=== PATIENT | male | born 1955 | race Caucasian/White ===

== ENCOUNTER → 2018-05-15 | Outpatient (CLI) | payer BC ==
--- NOTE | 2018-05-15 11:17 | XR ---
EXAMINATION TYPE: XR chest 2V DATE OF EXAM: 05/15/2018 COMPARISON: Prior chest x-ray 11/18/2009 HISTORY: Cough and congestion TECHNIQUE: Frontal and lateral views of the chest are obtained. FINDINGS: There is no focal air space opacity, pleural effusion, or pneumothorax seen. The cardiac silhouette size is within normal limits. The osseous structures are intact. There is eventration of the right hemidiaphragm. Arthropathy noted in the acromioclavicular joints. There is bronchial wall thickening. IMPRESSION: Correlate for bronchitis, reactive airways disease, follow-up as indicated.
== END | disposition home or self-care (01) ==
LOC: RADXRMAIN 10:07
PROVIDERS: ATTEND Internal Medicine
DX: R05 Cough (principal)
CPT/HCPCS: 71046

== ENCOUNTER 2018-08-20 11:14 | Emergency (ER) | payer BC ==
--- NOTE | 2018-08-20 12:07 | ED ---
General Adult HPI - General Chief complaint: Extremity Injury, Lower Stated complaint: Foot injury Time Seen by Provider: 08/20/18 11:48 Source: patient Mode of arrival: wheelchair Limitations: no limitations - History of Present Illness Initial comments: Dictation was produced using [employer] dictation software. please excuse any grammatical, word or spelling errors. Chief Complaint: 63-year-old male with past medical history of arthroscopic knee surgery presents with right knee pain and right ankle pain. History of Present Illness: A 63-year-old male. He states he was walking when he stepped over a uneven concrete surface. He states he inverted his right ankle. He fell to the ground catching himself. States this occurred last night. Patient reports immediate pain to his ankle and right knee. The ROS documented in this emergency department record has been reviewed and confirmed by me. Those systems with pertinent positive or negative responses have been documented in the HPI. All other systems are other negative and/or noncontributory. PHYSICAL EXAM: General Impression: Alert and oriented x3, not in acute distress HEENT: Normocephalic atraumatic, extra-ocular movements intact, pupils equal and reactive to light bilaterally, mucous membranes moist. Cardiovascular: Heart regular rate and rhythm, S1&S2 audible, no murmurs, rubs or gallops Chest: Lungs clear to auscultation bilaterally, no rhonchi, no wheeze, no rales Abdomen: Bowel sounds present, abdomen soft, non-tender, non-distended, no or ganomegaly Musculoskeletal: Pulses present and equal in all extremities, no peripheral edema. Mild tenderness to the tenderness to palpation of the right proximal fibula, tenderness to the right fifth metatarsal Motor: no focal deficits noted Neurological: CN II-XII grossly intact, no focal motor or sensory deficits noted Skin: Intact with no visualized rashes Psych: Normal affect and mood ED course: 63-year-old male presents with right ankle and right knee pain. Vital signs upon arrival are within acceptable limits.Knee x-ray ankle x-ray and foot x-ray was obtained. There is findings suspicious for Garcia fracture. There is also possible metatarsal fractures of the other digits of the right foot. Patient placed in a posterior ankle splint. Patient has crutches at home he is told to be nonweightbearing. Patient also to rest ice compress and elevate the right lower extremity. Patient has an established orthopedic surgeon Dr. Hoyos who he can schedule an appointment with. Patient given prescription for by mouth analgesics. Patient understandable agreeable to plan. - Related Data Home Medications Medication Instructions Recorded Confirmed Albuterol Sulfate [Proventil Hfa] 1 - 2 puff INHALATION Q6H PRN 10/04/13 11/24/13 Aspirin 81 mg PO DAILY 10/04/13 11/24/13 EPINEPHrine (Auto Inject) [Epipen] 0.3 mg IM ONCE PRN 10/04/13 11/24/13 Fexofenadine HCl [Priscilla Allergy] 180 mg PO HS 10/04/13 11/24/13 Fluticasone Propionate [Flonase] 1 spray EA NOSTRIL BID PRN 10/04/13 11/24/13 Lansoprazole [Prevacid] 30 mg PO DAILY 10/04/13 11/24/13 Levothyroxine Sodium [Synthroid] 50 mcg PO DAILY 10/04/13 11/24/13 Metoprolol Succinate [Toprol XL] 50 mg PO DAILY 10/04/13 11/24/13 Montelukast [Singulair] 10 mg PO HS 10/04/13 11/24/13 Ramipril [Altace] 10 mg PO DAILY 10/04/13 11/24/13 Previous Rx's Medication Instructions Recorded Ibuprofen [Motrin] 600 mg PO Q6HR PRN #20 tab 11/24/13 HYDROcodone/APAP 5-325MG [Dawson 1 tab PO Q6HR PRN 3 Days #12 tab 08/20/18 5-325] Allergies Allergy/AdvReac Type Severity Reaction Status Date / Time NUTS Allergy Severe THROAT Uncoded 08/20/18 11:41 SWELLING AND SOB DAIRY PRODUCTS Allergy Intermediate Rash/Hives Uncoded 08/20/18 11:41 ENVIRONMENTAL Allergy Intermediate COUGH & Uncoded 08/20/18 11:41 NASAL CONGESTION-WATERY ITCHY EYES Review of Systems ROS Statement: Those systems with pertinent positive or pertinent negative responses have been documented in the HPI. ROS Other: All systems not noted in ROS Statement are negative. Past Medical History Past Medical History: Hypertension, Thyroid Disorder Additional Past Medical History / Comment(s): HX GOUT. HX DIVERTICULOSIS History of Any Multi-Drug Resistant Organisms: None Reported Past Surgical History: Adenoidectomy, Orthopedic Surgery, Tonsillectomy Additional Past Surgical History / Comment(s): [facility]. RT KNEE SURGERY X 2. SINUS SURGERY-UVULA REMOVED Past Anesthesia/Blood Transfusion Reactions: No Reported Reaction Past Psychological History: No Psychological Hx Reported Smoking Status: Former smoker Past Alcohol Use History: None Reported Past Drug Use History: None Reported General Exam Limitations: no limitations Course Vital Signs 08/20/18 11:42 Temperature 97.7 F Pulse Rate 72 Respiratory 20 Rate Blood Pressure 123/77 O2 Sat by Pulse 97 Oximetry Procedures - Orthopedic Splinting/Casting Injury #1 Side: right Lower Extremity Injury Location: ankle Lower Extremity Immobilizer: posterior splint Other Orthopedic Equipment: crutches Disposition Clinical Impression: Garcia fracture Disposition: HOME SELF-CARE Condition: Good Instructions (If sedation given, give patient instructions): Foot Fracture in Adults (ED) Prescriptions: HYDROcodone/APAP 5-325MG [Dawson 5-325] 1 tab PO Q6HR PRN 3 Days #12 tab PRN Reason: Severe Pain Is patient prescribed a controlled substance at d/c from ED?: Yes If prescribed controlled substance>3 days was MAPS reviewed?: Prescribed <3 Days Referrals: Carlos Hoyos MD [STAFF PHYSICIAN] - 1-2 days Time of Disposition: 13:11
--- NOTE | 2018-08-20 12:41 | XR ---
EXAMINATION TYPE: XR knee complete RT , 3 VIEWS DATE OF EXAM ORDERED: 08/20/2018 HISTORY: Pain. COMPARISON: None. FINDINGS: There is medial joint space loss. There are mild remodeling changes in the medial compartm ent. No fracture, dislocation or knee joint effusion is seen. IMPRESSION: OSTEOARTHRITIS.
--- NOTE | 2018-08-20 12:43 | XR ---
EXAMINATION TYPE: XR foot complete RT , 3 VIEWS DATE OF EXAM ORDERED: 08/20/2018 HISTORY: Pain. COMPARISON: None. FINDINGS: There is a moderate hallux valgus deformity. There are degenerative changes in the right f irst MTP joint. There is a minimally displaced, intra-articular fracture of the base of the proximal phalanx of the right great toe. There is also fracture of the base of the proximal phalanx of the rig ht fifth digit. There is a fracture of the base of the fifth metatarsal. This is minimally displaced. IMPRESSION: 1. "BARAJAS" FRACTURE OF THE BASE OF THE FIFTH METATARSAL. 2. I CANNOT EXCLUDE FRACTURES OF THE BASE OF THE PROXIMAL PHALANGES OF THE RIGHT GREAT TOE AND FIFTH DIGIT.
--- NOTE | 2018-08-20 12:44 | XR ---
EXAMINATION TYPE: XR ankle complete RT , 3 VIEWS DATE OF EXAM ORDERED: 08/20/2018 HISTORY: Pain. COMPARISON: None. FINDINGS: No fracture, dislocation or ankle joint effusion is seen. IMPRESSION: NO ACUTE OSSEOUS LESION.
[2018-08-20 13:22] VITALS: BP 139/98; PULSE 71; RESP 18; TEMP 97.9
== END 2018-08-20 13:20 | disposition home or self-care (01) ==
LOC: EC 11:14
DX: S92.351A Displaced fracture of fifth metatarsal bone, right foot, initial encounter for closed fracture (principal); I10 Essential (primary) hypertension; E07.9 Disorder of thyroid, unspecified; Z79.82 Long term (current) use of aspirin; Z79.51 Long term (current) use of inhaled steroids; Z79.890 Hormone replacement therapy; Z79.899 Other long term (current) drug therapy; Z91.018 Allergy to other foods; Z91.011 Allergy to milk products; Z91.09 Other allergy status, other than to drugs and biological substances; Z87.891 Personal history of nicotine dependence; W01.0XXA Fall on same level from slipping, tripping and stumbling without subsequent striking against object, initial encounter; Y93.01 Activity, walking, marching and hiking
CPT/HCPCS: 29515; 99283

== ENCOUNTER → 2018-09-15 | Outpatient (CLI) | payer BC ==
--- NOTE | 2018-09-15 14:18 | US ---
EXAMINATION TYPE: US venous doppler duplex LE RT DATE OF EXAM: 09/15/2018 2:10 PM COMPARISON: NONE CLINICAL HISTORY: M79.671 Pain in R foot. Right leg swelling x 1 day SIDE PERFORMED: Right TECHNIQUE: The lower extremity deep venous system is examined utilizing real time linear array sonog dontrell with graded compression, doppler sonography and color-flow sonography. VESSELS IMAGED: External Iliac Vein (EIV) Common Femoral Vein Deep Femoral Vein Greater Saphenous Vein * Femoral Vein Popliteal Vein Small Saphenous Vein * Proximal Calf Veins (* superficial vessels) Right Leg: Appears negative for DVT IMPRESSION: No evidence for DVT at this time.
== END | disposition home or self-care (01) ==
LOC: RADUSWWP 13:43
PROVIDERS: ATTEND Orthopaedic Surgery
DX: M79.671 Pain in right foot (principal)

== ENCOUNTER 2019-01-24 13:20 | Emergency (ER) | payer BC ==
[2019-01-24 13:24] VITALS: BP 157/81; PULSE 60; RESP 18; TEMP 97.9
[2019-01-24] MEDS ORDERED: DIPH,PERTUS(ACELL)TETVAC-LF 0.5 ML VIAL IM ONE (13:55)
[2019-01-24] MEDS ORDERED: AMOXIC-POT CLAV 875MG STARTER 2 EACH TABLET PO STA (13:55)
--- NOTE | 2019-01-24 13:56 | ED ---
General Adult HPI - General Chief complaint: Animal Bite Stated complaint: dog bite rt elbow Time Seen by Provider: 01/24/19 13:43 Source: patient, RN notes reviewed Mode of arrival: ambulatory Limitations: no limitations - History of Present Illness Initial comments: 63-year-old maleWith a past medical history history of hypertension, thyroid disorder presents for dog bites to the right elbow. Patient is unsure if this was a scratch or bite. States he picked his dog up and the dog that was playing with his dog jumped up. This happened last night. Denies any erythema or drainage. States he cleaned the wound out thoroughly. Patient is not up-to-date on tetanus. Denies any pain with bending his right elbow.Patient has no other complaints at this time including shortness of breath, chest pain, abdominal pain, nausea or vomiting, headache, or visual changes. - Related Data Home Medications Medication Instructions Recorded Confirmed Albuterol Sulfate [Proventil Hfa] 1 - 2 puff INHALATION RT-Q6H PRN 10/04/13 01/24/19 Aspirin 81 mg PO DAILY 10/04/13 01/24/19 EPINEPHrine (Auto Inject) [Epipen] 0.3 mg IM ONCE PRN 10/04/13 01/24/19 Fexofenadine HCl [Priscilla Allergy] 180 mg PO DAILY 10/04/13 01/24/19 Lansoprazole [Prevacid] 30 mg PO DAILY 10/04/13 01/24/19 Levothyroxine Sodium [Synthroid] 50 mcg PO DAILY 10/04/13 01/24/19 Metoprolol Succinate [Toprol XL] 50 mg PO DAILY 10/04/13 01/24/19 Montelukast [Singulair] 10 mg PO DAILY 10/04/13 01/24/19 Ramipril [Altace] 10 mg PO DAILY 10/04/13 01/24/19 Previous Rx's Medication Instructions Recorded Amoxicillin/Potassium Clav 1 tab PO Q12HR #20 tab 01/24/19 [Augmentin 875-125 Tablet] Allergies Allergy/AdvReac Type Severity Reaction Status Date / Time NUTS Allergy Severe Anaphylaxis Uncoded 01/24/19 13:52 DAIRY PRODUCTS AdvReac Intermediate Rash/Hives Uncoded 01/24/19 13:52 ENVIRONMENTAL AdvReac Intermediate COUGH & Uncoded 01/24/19 13:52 NASAL CONGESTION-WATERY ITCHY EYES Review of Systems ROS Statement: Those systems with pertinent positive or pertinent negative responses have been documented in the HPI. ROS Other: All systems not noted in ROS Statement are negative. Past Medical History Past Medical History: Hypertension, Thyroid Disorder Additional Past Medical History / Comment(s): HX GOUT. HX DIVERTICULOSIS History of Any Multi-Drug Resistant Organisms: None Reported Past Surgical History: Adenoidectomy, Orthopedic Surgery, Tonsillectomy Additional Past Surgical History / Comment(s): [facility]. RT KNEE SURGERY X 2. SINUS SURGERY-UVULA REMOVED Past Anesthesia/Blood Transfusion Reactions: No Reported Reaction Past Psychological History: No Psychological Hx Reported Smoking Status: Former smoker Past Alcohol Use History: None Reported Past Drug Use History: None Reported General Exam Limitations: no limitations General appearance: alert, in no apparent distress Head exam: Present: atraumatic, normocephalic, normal inspection Eye exam: Present: normal appearance, PERRL, EOMI. Absent: scleral icterus, conjunctival injection, periorbital swelling ENT exam: Present: normal exam, mucous membranes moist Neck exam: Present: normal inspection, full ROM. Absent: tenderness, meningismus, lymphadenopathy Respiratory exam: Present: normal lung sounds bilaterally Cardiovascular Exam: Present: regular rate, normal rhythm, normal heart sounds. Absent: systolic murmur, diastolic murmur, rubs, gallop, clicks Extremities exam: Present: full ROM (Full range of motion of the right elbow including full flexion), normal capillary refill (Capillary refill less than, radial pulse 2+ in the right upper extremity.), other (Patient has a 2 cm linear superficial abrasion noted to the right elbow. No erythema or edema. No drainage. No evidence of infection at this time.) Course Vital Signs 01/24/19 13:22 Temperature 97.9 F Pulse Rate 60 Respiratory 18 Rate Blood Pressure 157/81 O2 Sat by Pulse 98 Oximetry Medical Decision Making - Medical Decision Making 63-year-old male presents to the emergency department for a chief complaint of possible dog bite versus dog scratch. Patient has full range motion of the right elbow where the abrasion is. Neurovascular status intact in the right upper extremity. There is no erythema or edema or drainage from the right elbow. No evidence of infection at this time. Wound was cleaned thoroughly at home. Tetanus was updated. The dog was up-to-date on rabies immunizations. Patient was given Augmentin here in the emergency department and prescription was sent to pharmacy. Patient will follow up with primary care in 1-2 days or return here if he has any worsening symptoms. Disposition Clinical Impression: Dog bite Disposition: HOME SELF-CARE Condition: Good Instructions (If sedation given, give patient instructions): Animal Bite (ED) Additional Instructions: Please take in a bank as directed. Please follow-up with primary care in 1-2 days for a wound recheck. Monitor for signs of infection such as spreading or streaking redness, drainage, fever, or pain with bending the elbow and return immediately to the emergency Department if these occur. Prescriptions: Amoxicillin/Potassium Clav [Augmentin 875-125 Tablet] 1 tab PO Q12HR #20 tab Is patient prescribed a controlled substance at d/c from ED?: No Referrals: Chaya Page MD [Primary Care Provider] - 1-2 days Time of Disposition: 13:55
== END 2019-01-24 14:17 | disposition home or self-care (01) ==
LOC: EC 13:20
DX: S50.311A Abrasion of right elbow, initial encounter (principal); Z23 Encounter for immunization; I10 Essential (primary) hypertension; E07.9 Disorder of thyroid, unspecified; Z79.82 Long term (current) use of aspirin; Z79.890 Hormone replacement therapy; Z79.899 Other long term (current) drug therapy; Z87.891 Personal history of nicotine dependence; Z91.018 Allergy to other foods; Z91.011 Allergy to milk products; Z91.09 Other allergy status, other than to drugs and biological substances; W54.0XXA Bitten by dog, initial encounter
CPT/HCPCS: 90471; 90715; 99283

== ENCOUNTER → 2020-09-01 | Outpatient (CLI) | payer BC ==
--- NOTE | 2020-09-02 06:59 | XR ---
EXAMINATION TYPE: XR chest 2V DATE OF EXAM: 09/01/2020 COMPARISON: 05/15/2018 TECHNIQUE: PA and lateral views submitted. HISTORY: Cough FINDINGS: The lungs are clear and there is no pneumothorax, pleural effusion, or focal pneumonia. Heart size normal. No overt failure. Mildly prominent coarsened central interstitium. IMPRESSION: 1. Correlate for bronchitis or early interstitial pneumonitis..
== END | disposition home or self-care (01) ==
LOC: RADXRMAIN 17:21
PROVIDERS: ATTEND Internal Medicine
DX: R05 Cough (principal)
CPT/HCPCS: 71046

== ENCOUNTER 2023-09-09 14:20 | Emergency (ER) | payer BC, OTHER ==
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
[2023-09-09] MEDS: IBUPROFEN 600 MG TAB PO STA (15:30)
[2023-09-09 16:08] VITALS: BP 125/76; PULSE 67; RESP 18; TEMP 98.2
== END 2023-09-09 15:41 | disposition home or self-care (01) ==
LOC: EC 14:20
DX: S16.1XXA Strain of muscle, fascia and tendon at neck level, initial encounter (principal); F17.200 Nicotine dependence, unspecified, uncomplicated; Z91.018 Allergy to other foods; Z91.048 Other nonmedicinal substance allergy status; V89.2XXA Person injured in unspecified motor-vehicle accident, traffic, initial encounter; Y92.410 Unspecified street and highway as the place of occurrence of the external cause
CPT/HCPCS: 72125; 99284

== ENCOUNTER 2024-09-05 11:35 | Emergency (ER) | payer BC ==
[2024-09-05 11:41] VITALS: TEMP 98.1
--- NOTE | 2024-09-05 11:52 | ED ---
General Adult HPI - General Chief complaint: Neuro Symptoms/Deficit Stated complaint: Dizziness/ Vision Issue Time Seen by Provider: 09/05/24 11:43 Source: patient, family, RN notes reviewed Mode of arrival: wheelchair Limitations: no limitations - History of Present Illness Initial comments: Patient is able 69-year-old male presenting to the emergency department with concern for headache. Onset of symptoms was while looking at the computer screen at work. Symptoms started around a half an hour ago. Discomfort is 5/10. Discomfort is behind her left eye. Patient does have some blurry vision. Patient is able to see otherwise. No photophobia. No vomiting. No weakness. No confusion. No speech problems. No loss of sensation. - Related Data Home Medications Medication Instructions Recorded Confirmed Albuterol Sulfate [Proventil Hfa] 1 - 2 puff INHALATION RT-Q6H PRN 10/04/13 02/16/22 Aspirin 81 mg PO DAILY 10/04/13 02/16/22 EPINEPHrine (Auto Inject) [Epipen] 0.3 mg IM ONCE PRN 10/04/13 02/16/22 Lansoprazole [Prevacid] 30 mg PO DAILY 10/04/13 02/16/22 Levothyroxine Sodium [Synthroid] 50 mcg PO DAILY 10/04/13 02/16/22 Metoprolol Succinate [Toprol XL] 50 mg PO DAILY 10/04/13 02/16/22 Montelukast [Singulair] 10 mg PO DAILY 10/04/13 02/16/22 ramipriL [Altace] 10 mg PO DAILY 10/04/13 02/16/22 amLODIPine [Norvasc] 5 mg PO DAILY 02/15/22 02/16/22 Previous Rx's Medication Instructions Recorded Ibuprofen [Motrin] 600 mg PO Q6HR PRN #20 tab 09/09/23 Allergies Allergy/AdvReac Type Severity Reaction Status Date / Time NUTS Allergy Severe Anaphylaxis Uncoded 09/09/23 14:24 DAIRY PRODUCTS AdvReac Intermediate Rash/Hives Uncoded 09/09/23 14:24 ENVIRONMENTAL AdvReac Intermediate COUGH & Uncoded 09/09/23 14:24 NASAL CONGESTION-WATERY ITCHY EYES Review of Systems ROS Statement: Those systems with pertinent positive or pertinent negative responses have been documented in the HPI. ROS Other: All systems not noted in ROS Statement are negative. Constitutional: Denies: fever Eyes: Denies: eye pain ENT: Denies: ear pain Respiratory: Denies: cough Cardiovascular: Denies: chest pain Endocrine: Denies: fatigue Gastrointestinal: Denies: abdominal pain Musculoskeletal: Denies: back pain Skin: Denies: rash Neurological: Reports: as per HPI, headache. Denies: weakness, confusion Past Medical History Past Medical History: Hypertension, Thyroid Disorder Additional Past Medical History / Comment(s): HX GOUT. HX DIVERTICULOSIS History of Any Multi-Drug Resistant Organisms: None Reported Past Surgical History: Adenoidectomy, Orthopedic Surgery, Tonsillectomy Additional Past Surgical History / Comment(s): [facility] WRI[facility]. RT KNEE SURGERY X 2. SINUS SURGERY-UVULA REMOVED Past Anesthesia/Blood Transfusion Reactions: No Reported Reaction Past Psychological History: No Psychological Hx Reported Smoking Status: Former smoker, Light tobacco smoker Past Alcohol Use History: None Reported Past Drug Use History: None Reported - Past Family History Father Family Medical History: Hypertension Mother Family Medical History: No Reported History General Exam Limitations: no limitations General appearance: alert, in no apparent distress Head exam: Present: other (No tenderness over the temporal artery) Eye exam: Present: normal appearance, PERRL, EOMI Neck exam: Present: normal inspection. Absent: tenderness, meningismus Respiratory exam: Present: normal lung sounds bilaterally Cardiovascular Exam: Present: regular rate, normal rhythm, normal heart sounds GI/Abdominal exam: Present: soft. Absent: tenderness Extremities exam: Present: normal inspection Neurological exam: Present: alert, oriented X3, CN II-XII intact. Absent: motor sensory deficit Expanded Neurological exam: Present: protecting the airway Speech: Present: fluid speech Cranial nerves: EOM's Intact: Normal, Facial Sensation: Normal Sensory exam: Upper Extremity Light Touch: Normal, Lower Extremity Light Touch: Normal Motor strength exam: RUE: 5, LUE: 5, RLE: 5, LLE: 5 Eye Response: (4) open spontaneously Motor Response: (6) obeys commands Verbal Response: (5) oriented Psychiatric exam: Present: normal affect, normal mood Skin exam: Present: normal color Course Vital Signs 09/05/24 11:37 Temperature 98.1 F Pulse Rate 58 L Respiratory 16 Rate Blood Pressure 147/90 O2 Sat by Pulse 99 Oximetry EKG Findings - EKG Results: EKG: interpreted by ERMD (Left axis.), sinus rhythm, normal QRS, normal ST/T EKG shows: bradycardia Medical Decision Making - Medical Decision Making Was pt. sent in by a medical professional or institution ([facility], PERITONEAL DIALYSIS REGISTERED NURSE, urgent care, hospital, or custodial...) When possible be specific @ -No Did you speak to anyone other than the patient for history (EMS, parent, family, police, friend...)? What history was obtained from this source @ - is present and provides history of previous pituitary mass Did you review nursing and triage notes (agree or disagree)? Why? @ -I reviewed and agree with nursing and triage notes Were old charts reviewed (outside hosp., previous admission, EMS record, old EKG, old radiological studies, urgent care reports/EKG's, custodial records)? Report findings @ -Previous MRI in 2009 with pituitary 1.48 Differential Diagnosis (chest pain, altered mental status, abdominal pain women, abdominal pain men, vaginal bleeding, weakness, fever, dyspnea, syncope, headache, dizziness, GI bleed, back pain, seizure, CVA, palpatations, mental hea lth, musculoskeletal)? @ -Differential Headache: Migraine, tension, cluster, carbon monoxide, central venous thrombosis, pension karma temporal arteritis, acute closure glaucoma, intercranial hemorrhage, mastoiditis, sinusitis, head injury, this is not meant to be an all-inclusive list. EKG interpreted by me (3pts min.). @ -As above X-rays interpreted by me (1pt min.). @ -None done CT interpreted by me (1pt min.). @ -CT scan brain shows pituitary 2 cm. Otherwise no abnormalities U/S interpreted by me (1pt. min.). @ -None done What testing was considered but not performed or refused? (CT, X-rays, U/S, labs)? Why? @ -None What meds were considered but not given or refused? Why? @ -None Did you discuss the management of the patient with other professionals (professionals i.e. [facility] Moreland, PERITONEAL DIALYSIS REGISTERED NURSE, lab, RT, psych nurse, social worker assistant, school fundraising director, teacher, juvenile detention officer, housing case manager)? Give summary @ -No Was smoking cessation discussed for >3mins.? @ -No Was critical care preformed (if so, how long)? @ -No Were there social determinants of health that impacted care today? How? (Homelessness, low income, unemployed, alcoholism, drug addiction, transportation, low edu. Level, literacy, decrease access to med. care, skilled nursing, rehab)? @ -No Was there de-escalation of care discussed even if they declined (Discuss DNR or withdrawal of care, Hospice)? DNR status @ -No What co-morbidities impacted this encounter? (DM, HTN, Smoking, COPD, CAD, Cancer, CVA, ARF, Chemo, Hep., AIDS, mental health diagnosis, sleep apnea, morbid obesity)? @ -History of pituitary mass Was patient admitted / discharged? Hospital course, mention meds given and route, prescriptions, significant lab abnormalities, going to OR and other pertinent info. @ -Patient presents with headache and blurry vision, resolved on reevaluation. CT scan does show pituitary mass, somewhat increased from previous. Patient is symptom-free and can be discharged for follow-up. Patient and family are updated. Undiagnosed new problem with uncertain prognosis? @ -No Drug Therapy requiring intensive monitoring for toxicity (Heparin, Nitro, Insulin, Cardizem)? @ -No Were any procedures done? @ -No Diagnosis/symptom? @ -Cephalgia Acute, or Chronic, or Acute on Chronic? @ -Acute Uncomplicated (without systemic symptoms) or Complicated (systemic symptoms)? @ -Default Side effects of treatment? @ -No Exacerbation, Progression, or Severe Exacerbation? @ -No Poses a threat to life or bodily function? How? (Chest pain, USA, PA, pneumonia, PE, COPD, DKA, ARF, appy, cholecystitis, CVA, Diverticulitis, Homicidal, Suici mayra, threat to staff... and all critical care pts) @ -No - Lab Data Result diagrams: 09/05/24 11:56 09/05/24 11:56 Lab Results 09/05/24 09/05/24 Range/Units 11:56 11:56 WBC 8.86 (4.50-10.00) 10*3/uL RBC 5.20 (4.40-5.60) 10*6/uL Hgb 15.1 (13.0-17.0) g/dL Hct 44.8 (39.6-50.0) % MCV 86.2 (80.0-97.0) fL MCH 29.0 (27.0-32.0) pg MCHC 33.7 (32.0-37.0) g/dL Plt Count 313 (140-440) 10*3/uL MPV 9.0 L (9.5-12.2) fL Immature Gran % (Auto) 0.5 % Neutrophils % 67.5 % Lymphocytes % 20.5 % Monocytes % 8.9 % Eosinophils % 1.6 % Basophils % 1.0 % Immature Gran # 0.04 (0.00-0.04) 10*3/uL Neutrophils # 5.98 (1.80-7.70) 10*3/uL Lymphocytes # 1.82 (0.90-5.00) 10*3/uL Monocytes # 0.79 (0.20-1.00) 10*3/uL Eosinophils # 0.14 (0.04-0.35) 10*3/uL Basophils # 0.09 (0.00-0.10) 10*3/uL Sodium 136 L (137-145) mmol/L Potassium 4.7 (3.5-5.1) mmol/L Chloride 102 (98-107) mmol/L Carbon Dioxide 23 (22-30) mmol/L Anion Gap 11 mmol/L BUN 26 H (9-20) mg/dL Creatinine 1.04 (0.66-1.25) mg/dL Est GFR (CKD-EPI)AfAm 85 (>60 ml/min/1.73 sqM) Est GFR (CKD-EPI)NonAf 74 (>60 ml/min/1.73 sqM) Glucose 105 H (74-99) mg/dL Calcium 10.1 (8.4-10.2) mg/dL Magnesium 1.9 (1.6-2.3) mg/dL Total Bilirubin 0.5 (0.2-1.3) mg/dL AST 26 (17-59) U/L ALT 29 (4-49) U/L Alkaline Phosphatase 80 (38-126) U/L Total Protein 6.8 (6.3-8.2) g/dL Albumin 4.4 (3.5-5.0) g/dL Disposition Clinical Impression: Cephalgia Disposition: HOME SELF-CARE Condition: Stable Instructions (If sedation given, give patient instructions): Acute Headache (ED) Additional Instructions: Please do follow-up with your primary care physician in the next couple of days for recheck. Have primary care physician check previous records and consider follow-up with your neurosurgeon. Return for increased pain, fever, weakness, worsening visual changes, worsening symptoms or other concerns. Is patient prescribed a controlled substance at d/c from ED?: No Referrals: Chaya Page MD [Primary Care Provider] - 1-2 days Time of Disposition: 13:16
[2024-09-05] MEDS: METOCLOPRAMIDE 5 MG/ML 2 ML VIAL IVP STA (11:57)
[2024-09-05] MEDS: diphenhydrAMINE 50 MG/ML 1 ML VIAL IVP STA (11:57)
[2024-09-05] MEDS: SODIUM CHLORIDE 0.9% 1,000 ML IV STA (11:58)
[2024-09-05 12:02] LABS: Basophils # (A) 0.09 10*3/uL (0.00-0.10); Eosinophils # (A) 0.14 10*3/uL (0.04-0.35); Eosinophils % (A) 1.6 %; HCT 44.8 % (39.6-50.0); HGB 15.1 g/dL (13.0-17.0); Lymphocytes # (A) 1.82 10*3/uL (0.90-5.00); Lymphocytes % (A) 20.5 %; MCHC 33.7 g/dL (32.0-37.0); MCV 86.2 fL (80.0-97.0); Monocytes # (A) 0.79 10*3/uL (0.20-1.00); Monocytes % (A) 8.9 %; Neutrophils # (A) 5.98 10*3/uL (1.80-7.70); Neutrophils % (A) 67.5 %; Platelet Count 313 10*3/uL (140-440); RDW 13.4 % (11.5-14.5); WBC 8.86 10*3/uL (4.50-10.00)
[2024-09-05 12:16] LABS: ALT 29 U/L (4-49); AST 26 U/L (17-59); African American GFR (CKD) 85 (>60 ml/min/1.73 sqM); Albumin 4.4 g/dL (3.5-5.0); Alkaline Phosphatase 80 U/L (38-126); Anion Gap 11 mmol/L; Blood Urea Nitrogen 26 mg/dL (9-20); Calcium 10.1 mg/dL (8.4-10.2); Carbon Dioxide 23 mmol/L (22-30); Chloride 102 mmol/L (98-107); Glucose 105 mg/dL (74-99); Magnesium 1.9 mg/dL (1.6-2.3); Non-African American GFR(CKD) 74 (>60 ml/min/1.73 sqM); Potassium 4.7 mmol/L (3.5-5.1); Sodium 136 mmol/L (137-145); Total Bilirubin 0.5 mg/dL (0.2-1.3); Total Protein 6.8 g/dL (6.3-8.2)
--- NOTE | 2024-09-05 12:38 | CT ---
EXAMINATION TYPE: CT brain wo con DATE OF EXAM: 09/05/2024 12:20 PM COMPARISON: None. CLINICAL INDICATION: Male, 69 years old with history of Headache, HEADACHE AND DIZZINESS., TECHNIQUE: Examination was done in axial plane without intravenous contrast. Coronal and sagittal r econstructions performed. CT DLP: 1207.7 mGycm, Automated exposure control for dose reduction was used. FINDINGS: There is no evidence of acute intracranial hemorrhage, acute ischemic changes, or extra-axial fluid collection. There is no effacement of cerebral sulci or basal subarachnoid cisterns. There is no hy drocephalus. There is no midline shift. Garrison-white matter distinction is preserved. There appears to be smooth round, noncalcified mass versus pituitary enlargement centered within the sella measuring 1.6 x 2.0 cm. This contributes to some expansion of the sella. Atherosclerotic calcif ications of the carotid siphons. 1.9 cm mucosal retention cyst floor of the left maxillary sinus. Mastoid air cells are well pneumatiz ed. Leftward nasal septal deviation. IMPRESSION: Pituitary mass measuring 2.0 cm showing sellar enlargement. Consider underlying macroadenoma. Further neurosurgery and pituitary MRI evaluation recommended. Otherwise, no acute intracranial abnormality seen. [facility], , 09/05/2024 12:35 PM
[2024-09-05 13:56] VITALS: BP 136/78; PULSE 60; RESP 18
== END 2024-09-05 13:55 | disposition home or self-care (01) ==
LOC: EC 11:35
DX: R51.9 Headache, unspecified (principal); R00.1 Bradycardia, unspecified; F17.200 Nicotine dependence, unspecified, uncomplicated; Z91.018 Allergy to other foods; Z91.09 Other allergy status, other than to drugs and biological substances; Z91.011 Allergy to milk products; Z86.018 Personal history of other benign neoplasm
CPT/HCPCS: 36415; 80053; 83735; 85025; 70450; 99284; 96374; 96375; 96361; J1200; J2765